=== PATIENT | male | born 1960 | race American Indian/Alaskan Native ===

== ENCOUNTER 2019-05-25 08:41 | Day surgery (SDC) | payer OTHER ==
[~2019-05-25 08:41] MED LIST: LIDOCAINE (1%) 10 MG/1 ML VIAL 20 ML MDV ONE; PROPOFOL 200 MG/20 ML VIAL IV ONE; SODIUM CHLORIDE 0.9% 1000 ML 1,000 ML IV SCH
[2019-05-25] MEDS ORDERED: WATER FOR IRRIG STERILE 250 ML BOTTLE IR ONE (08:57)
[2019-05-25] MEDS ORDERED: SIMETHICONE 40 MG/0.6 ML ORAL DROP 30ML PO ONE ×2 (08:58→09:00)
[2019-05-25] MEDS ORDERED: WATER FOR IRRIG STERILE 1,000 ML BOTTLE ONE (08:58)
[2019-05-25] MEDS ORDERED: LIDOCAINE MPF (2%) 20 MG/1 ML VIAL 5 ML ONE (09:00)
--- NOTE | 2019-05-25 09:33 | Anesthesia Day of Surgery ---
Anesthesia Day of Surgery - Day of Surgery Patient Examined: Yes Patient H&P Reviewed: Yes Patient is NPO: Yes Beta Blockers: No Cardiac Clearance: No Pulmonary Clearance: No Navin's Test: N/A
--- NOTE | 2019-05-25 09:34 | Anesthesia Consultation ---
Anesthesia Consult and Med Hx Date of service: 05/25/19 - Airway ROM Head & Neck: Adequate Mental/Hyoid Distance: Adequate Mallampati Class: Class III Intubation Access Assessment: Probably Good - Pulmonary Exam CTA: Yes - Cardiac Exam Cardiac Exam: RRR - Pre-Operative Health Status ASA Pre-Surgery Classification: ASA2 Proposed Anesthetic Plan: General, MAC - Pulmonary Hx Smoking: Yes (>20 YRS) Hx Sleep Apnea: Yes (w/ CPAP, compliant) - Central Nervous System Hx Psychiatric Problems: Yes
--- NOTE | 2019-05-25 10:26 | Discharge Summary ---
Short Stay Discharge Plan Activity: advance as tolerated Weight Bearing Status: Weight Bear as Tolerated Diet: regular Additional Instructions: Avoid Aspirin NSAIDS D/C Instructions Avoid the following for the time period specified by your physician: -Asprin(Justo, Bufferin, Excedrin, Goody's or BC Powders) -Ibuprofen (Advil or Motrin) -Naproxen (Aleve or Naprosyn) -Indomethacin, Sulindac, Etodolac, Diclofenac -Meloxicam, Piroxicam, Tenoxicam, Droxicam, Lornoxicam, Isoxicam -Mefenamic acid, Meclofenamic acid, Flufenamic acid, Tolfenamic acid -Celecoxib (Celebrex) Post Sedation D/C Instructions When you return home you may resume your regular diet unless otherwise directed. -Go directly home from the hospital and rest quietly. You may resume normal activities tomorrow. -Do NOT drive, return to work, operate any machinery or make any important personal or business decisions today. -Do NOT drink any alcohol or take nerve or sleeping drugs. They add to the effects of the medicine still present in your body. Follow up with: [facility] [Primary Care Provider] - 7 Days Forms: Discharge Signature Page
--- NOTE | 2019-05-25 10:26 | Operative Report ---
Operative Report Operative Report: Procedure: Colonoscopy with Submucosal Injection, Multiple Cold Snare polypectomies, Hemoclip applications, cold biopsy polypectomy. Attending physician: Noah Dang M.D. Newspaper Manager: Noah Dang M.D. Indication: Patient is a 59-year-old female who presents for colorectal cancer screening. This colonoscopy serves to evaluate patient so that treatment may be directed based on the findings. Consent: Informed consent was obtained after advising the patient and family regarding nature of this procedure, its indications, potential benefits as well as possible complications including but not limited to bleeding perforation and adverse reaction to medication, infection as well as other cardiopulmonary complications. An informed written and verbal consent was then obtained after due opportunity was provided for questions and answers. Monitoring: Patient was monitored continuously with pulse oximetry and electrocardiographic recordings as well as blood pressure recordings. Vital signs remained stable throughout this procedure with no untoward events. Preoperative assessment: Patient was assessed immediately prior to this procedure for capacity to tolerate monitored anesthesia care and moderate sedation as well as general anesthesia. Patient's ASA classification is 2, Mallampati class is 2, Hyomental distance is 3. Instrument: Olympus video colonoscope CF-HQ 190L Medications: Propofol given intravenously in divided doses. For details please refer to anesthesia records. Description of procedure: Patient was placed in the left lateral decubitus position after achieving sedation, a digital rectal examination was performed following which the colonoscope was introduced into the anal verge and advanced to the cecum which was identified by the cecal valve, the appendiceal orifice, as well as by the cecal strap and direct transillumination. The colonoscope was subsequently withdrawn with careful inspection of all mucosal surfaces. Patient tolerated this procedure well and was subsequently taken to the recovery room. The following findings were noted. Findings: Hazel bowel preparation scale score : 6. : Patient had adequate colonoscopic preparation with no significant residual stool in the right colon and transverse colon and left colon. The overall preparation therefore deemed adequate with a scale score of 6. The withdrawal time from the cecum was greater than 6 minutes. Patient had diverticulosis of mild severity involving the descending colon and sigmoid colon. The cecum was normal. The ascending colon was normal. In the transverse colon, patient had an 8 mm sessile polyp which was elevated with submucosal injection of saline and removed by cold snare polypectomy and retrieved. In the descending colon, patient had a 7 mm sessile polyp which was elevated with submucosal injection of saline and removed by cold snare polypectomy and retrieved. The defect at the polypectomy site was closed with a Hemoclip. In the rectum, patient had a diminutive flat polyp which was removed by cold biopsy polypectomy and retrieved. The rest of the colon was normal except for the findings of mild colonic diverticulosis. On a retroflexed view of the anal verge, patient had internal hemorrhoids. Impression: Transverse colon polyp status post submucosal injection and cold snare polypectomy. Descending colon polyp status post submucosal injection and cold snare polypectomy with Rectal polyp status post cold biopsy polypectomy. Diverticular disease of the colon. Internal hemorrhoids. Plan: Follow pathology report. High-fiber diet. Repeat colonoscopy in 5 years if polypectomy is adenomatous
[2019-05-25 10:38] VITALS: BP 163/91
--- NOTE | 2019-05-25 11:27 | Post Anesthesia Evaluation ---
- Post Anesthesia Evaluation Patient Participated: Yes Airway Patent: Yes Stable Respiratory Function: Yes Nausea/Vomiting: No Temp > 96.8F: Yes Pain Manageable: Yes Adequeate Hydration: Yes Anesthesia Complications: No Block Receding Appropriately: Not Applicable Patient on Ventilator: No
== END 2019-05-25 10:45 | disposition home or self-care (01) ==
LOC: GIO 08:41
PROVIDERS: ATTEND Internal Medicine Gastroenterology
DX: Z12.11 Encounter for screening for malignant neoplasm of colon (principal); D12.3 Benign neoplasm of transverse colon; D12.4 Benign neoplasm of descending colon; D12.8 Benign neoplasm of rectum; K57.30 Diverticulosis of large intestine without perforation or abscess without bleeding; G62.9 Polyneuropathy, unspecified; G47.30 Sleep apnea, unspecified; F41.9 Anxiety disorder, unspecified; Z98.890 Other specified postprocedural states; Z87.891 Personal history of nicotine dependence; Z79.899 Other long term (current) drug therapy
CPT/HCPCS: 45380; 45381; 45385; 88305; J2704; J7030